=== PATIENT | male | born 1960 | race Two or more races ===

== ENCOUNTER 2020-04-12 12:29 | Outpatient (CLI) | payer MEDICAID ==
--- NOTE | 2020-04-13 01:14 | Consultation ---
DATE OF CONSULTATION: 04/12/2020 CHIEF COMPLAINT: Abdominal pain. HISTORY OF PRESENT ILLNESS: This is a pleasant 60-year-old male, who apparently had a history of partial colectomy for GI bleeding, rectal bleeding, we are not sure. Last colonoscopy on the patient was about three ago. He is here mainly for complaint of heartburn symptoms, bloating, mild constipation. PAST MEDICAL HISTORY: 1. History of diverticulosis. 2. GERD. PAST SURGICAL HISTORY: Partial colectomy. MEDICATIONS: None. ALLERGIES: No known drug allergies. FAMILY HISTORY: No family history of GI malignancies. SOCIAL HISTORY: The patient occasionally drinks and smokes. Denies any IV drug abuse. REVIEW OF SYSTEMS: Positive for mild constipation and GERD. PHYSICAL EXAMINATION: VITAL SIGNS: Temperature 98, blood pressure 148/97, pulse is , respirations 20. HEENT: Normocephalic and atraumatic. Sclerae are anicteric. NECK: Supple. No evidence of obvious lymphadenopathy. CARDIOVASCULAR: Regular rate and rhythm. Plus S1, S2. LUNGS: Clear to auscultation bilaterally. ABDOMEN: Positive bowel sounds. Soft and nontender. No rebound. No guarding. No peritoneal sign. EXTREMITIES: No cyanosis, no clubbing, no edema. ASSESSMENT AND PLAN: A 60-year-old male referred for abdominal pain, sign and symptoms are well consistent with GERD. We are going to start the patient on omeprazole 40 mg p.o. daily. Add MiraLAX for mild constipation. Return to clinic in two months for followup. Venkata Camarena M.D. DR: Jose JOB#: [id number] CC:
[2020-04-13 09:19] VITALS: BP 148/97
== END 2020-04-12 14:29 | disposition home or self-care (01) ==
LOC: PAN 12:29
DX: R10.9 Unspecified abdominal pain (principal); Z90.49 Acquired absence of other specified parts of digestive tract; R12 Heartburn; R14.0 Abdominal distension (gaseous); K59.00 Constipation, unspecified; K21.9 Gastro-esophageal reflux disease without esophagitis
CPT/HCPCS: 99203